=== PATIENT | male | born 1960 | race Caucasian/White ===

== ENCOUNTER 2016-08-17 09:17 | Emergency (ER) | payer BC ==
[2016-08-17 09:33] VITALS: BP 178/118
--- NOTE | 2016-08-17 09:46 | UC ---
Respiratory Complaint HPI - HPI Summary HPI Summary: coughed so hard he "popped a rib" a few days ago. Cough for over a week. Started with ST, malaise, sinus fullness, then moved into chest. Dry, wheezy cough. No hurts so much on right ribcage he is suppressing the cough. No hemoptysis. No fever. No vomiting. No bruising or chest trauma. - History of Current Complaint Chief Complaint: UCRespiratory Stated Complaint: CONGESTION PAIN IN RIB AREA Time Seen by Provider: 08/17/16 09:31 Hx Obtained From: Patient, Family/Service Or Work Dispatcher Chief - Onset/Duration: Gradual Onset, Lasting Weeks - 1 Timing: Constant Severity Initially: Mild Severity Currently: Moderate Character: Cough: Nonproductive Aggravating Factors: Exertion, Deep Breaths Alleviating Factors: Nothing Associated Signs And Symptoms: Positive: Pleuritic Chest Pain, Wheezing - with cough, URI, Nasal Congestion. Negative: Dyspnea, Fever, Chills, Hemoptysis, Edema, Hoarseness, Sinus Discomfort - Risk Factors Pulmonary Embolism Risk Factors: Negative Cardiac Risk Factors: Negative Pseudomonas Risk Factors: Negative Tuberculosis Risk Factors: Negative - Allergies/Home Medications Allergies/Adverse Reactions: Allergies Allergy/AdvReac Type Severity Reaction Status Date / Time No Known Allergies Allergy Verified 08/17/16 09:27 Home Medications: Home Medications Dextromethorphan Polistirex [Robitussin 12 Hour Cough] 08/17/16 [History Confirmed 08/17/16] Ibuprofen TAB* [Motrin TAB* 600 MG] 1 tab PO TID PRN 08/17/16 [History Confirmed 08/17/16] PMH/Surg Hx/FS Hx/Imm Hx Previously Healthy: Yes Endocrine History Of: Denies: Diabetes, Thyroid Disease Cardiovascular History Of: Denies: Cardiac Disorders, Hypertension Respiratory History Of: Denies: COPD, Asthma GI/ History Of: Denies: Ulcer - Surgical History Surgical History: None - Family History Known Family History: Negative: Respiratory Disease - no FH asthma - Social History Occupation: Employed Full-time Lives: With Family Alcohol Use: Daily Substance Use Type: None Smoking Status (MU): Never Smoked Tobacco Review of Systems Constitutional: Negative Skin: Negative Eyes: Negative ENT: Negative Respiratory: Cough Cardiovascular: Chest Pain - right lateral ribcage, small specific area of pain Gastrointestinal: Negative Genitourinary: Negative Motor: Negative Neurovascular: Negative Musculoskeletal: Negative Neurological: Negative Psychological: Negative All Other Systems Reviewed And Are Negative: Yes Physical Exam Triage Information Reviewed: Yes Appearance: Well-Appearing, No Pain Distress, Well-Nourished Vital Signs: Initial Vital Signs Temp 97.7 F 08/17/16 09:28 Pulse 82 08/17/16 09:28 Resp 16 08/17/16 09:28 BP 178/118 08/17/16 09:28 Pulse Ox 97 08/17/16 09:28 Vital Signs Reviewed: Yes Eye Exam: Normal Neck exam: Normal Neck: Positive: Supple Respiratory: Positive: Lungs clear, Normal breath sounds, No respiratory distress, No accessory muscle use. Negative: Crackles, Rhonchi, Stridor, Wheezing Cardiovascular Exam: Other - point tenderness right lateral lower ribcage Musculoskeletal Exam: Normal Neurological Exam: Normal Psychological Exam: Normal Skin Exam: Normal - no bruising UC Diagnostic Evaluation - Laboratory O2 Sat by Pulse Oximetry: 97 Diagnostic Studies Comment: xray neg Respiratory Course/Dx - Differential Dx/Diagnosis Differential Diagnosis/HQI/PQRI: Bronchitis, Lower Resp Infection, Other - rib fracture Provider Diagnoses: URI; rib fracture Discharge - Discharge Plan Condition: Stable Disposition: HOME Prescriptions: Azithromycin TAB* [Zithromax TAB (Z-IBETH)*] 0 mg PO .Z-IBETH INSTRUCTIONS #6 tab Guaifenesin-Codeine [Cheratussin AC] 1 - 2 teasp PO Q6HR PRN #120 ml MDD 30ml PRN Reason: Cough Tramadol HCl [Ultram] 1 - 2 tab PO Q6HR PRN #20 tab MDD 6 tab PRN Reason: Pain Patient Education Materials: Upper Respiratory Infection (ED), Rib Fracture (ED )
--- NOTE | 2016-08-17 09:54 | RAD ---
HISTORY: Coughing, felt pop in rib cage COMPARISONS: October 12, 2007 VIEWS: 2: Frontal dual-energy and lateral views of the chest. FINDINGS: CARDIOMEDIASTINAL SILHOUETTE: The cardiomediastinal silhouette is normal for the phase of inspiration and technique. The cardiomediastinal silhouette is stable. GALINDO: The galindo are normal. PLEURA: The costophrenic angles are sharp. No pleural abnormalities are noted. LUNG PARENCHYMA: The lung volumes are low. The lungs are clear. ABDOMEN: The upper abdomen is clear. There is no subphrenic gas. BONES AND SOFT TISSUES: No bone or soft tissue abnormalities are noted. OTHER: None. IMPRESSION: LOW LUNG VOLUMES. NO ACTIVE CARDIOPULMONARY DISEASE.
== END 2016-08-17 10:31 | disposition home or self-care (01) ==
LOC: UCEAST 09:17
DX: J06.9 Acute upper respiratory infection, unspecified (principal); R07.81 Pleurodynia
CPT/HCPCS: 71020; 99202; G0463

== ENCOUNTER 2017-04-02 10:24 | Emergency (ER) | payer BC ==
--- NOTE | 2017-04-02 12:12 | UC ---
Reagan Montero Angela, scribed for Lori Rizvi MD on 04/02/17 at 1102 . Upper Extremity HPI - HPI Summary HPI Summary: This pt is a 57 y/o right hand dominant male presenting to [facility] c/o discolored, painful, and cold right fingers (second, third, fourth and fifth fingers). Symptoms (pain) started approx one week ago. Pain started at DIP 3rd digit, where it remains worse. But has extended to 2-5 digits, and to proximal finger portion. Pt states that his third knuckle began to hurt 1 week ago and 4 days ago the third finger began to look blue. He notes that since then, he has had pain and discoloration on the fourth and fifth fingers as well. Finger discoloration since Friday, but they were "white" prior to then. Pt reports that his fingers feels numb and describes his pain as "needles poking him in fingers." His symptoms are aggravated with extension of his arm and is alleviated with elevation of his arm. No elbow or wrist pain perse. No neck sx reported. No CP /palpitations. No sob. 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 He has taken Motrin since Friday for the pain with minimal relief. Pt denies any injury to his hand, fever, chills, chest pain , SOB. Last night, pt reports his pain was very intolerable and decided to come in to [facility] today. 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 - History of Current Complaint Chief Complaint: UCGeneralIllness Stated Complaint: HAND COMPLAINT Hx Obtained From: Patient, Family/Relay Man Onset/Duration: Lasting Days, Still Present Severity Initially: Mild Severity Currently: Severe Location Of Pain: Is Diffuse - Third, fourth and fifth right fingers Aggravating Factor(s): Extension Alleviating Factor(s): Elevation Associated Signs And Symptoms: Positive: Bruising, Numbness/Tingling. Negative : Redness, Fever, Weakness - Allergies/Home Medications Allergies/Adverse Reactions: Allergies Allergy/AdvReac Type Severity Reaction Status Date / Time No Known Allergies Allergy Verified 04/02/17 10:30 PMH/Surg Hx/FS Hx/Imm Hx Other Endocrine History: DENIES: diabetes Other Cardiovascular History: DENIES: cardiac disease, [place] Other Neurological History: DENIES: CVA Other Cancer History: DENIES: Cancer - Surgical History Surgical History: None - Family History Known Family History: Positive: Other - Brain CA - mother. Blood clot fatal- father. Negative: Respiratory Disease - no FH asthma - Social History Alcohol Use: Daily Substance Use Type: None Smoking Status (MU): Never Smoked Tobacco Review of Systems Constitutional: Negative Skin: Bruising Eyes: Negative Respiratory: Negative Cardiovascular: Negative Musculoskeletal: Other: - Pain at third, fourth, and fifth right fingers. Neurological: Numbness - at the third, fourth, fifth right fingers. All Other Systems Reviewed And Are Negative: Yes Physical Exam Triage Information Reviewed: Yes Appearance: Well-Appearing - c/o pain R finger tips, Well-Nourished Vital Signs: Initial Vital Signs Temp 98 F 04/02/17 10:32 Pulse 75 04/02/17 10:32 Resp 17 04/02/17 10:32 Pulse Ox 100 04/02/17 10:32 Vital Signs Reviewed: Yes Eye Exam: Normal ENT Exam: Normal Neck exam: Normal Neck: Positive: Supple Respiratory Exam: Normal, Other - no dyspnea, no tachypnea, normal respiratory rate. Respiratory: Positive: Chest non-tender, Lungs clear, Normal breath sounds, No respiratory distress, No accessory muscle use Cardiovascular Exam: Normal Cardiovascular: Positive: RRR, No Murmur, Pulses Normal, Brisk Capillary Refill - general good cap ref. see below "extremity" for details, Other: Abdominal Exam: Normal Abdomen Description: Positive: Nontender, No Organomegaly, Soft Bowel Sounds: Positive: Present Musculoskeletal Exam: Other - EXTREMITY: Moves all 4 ext's. Palpable bilat R / L radial and ulnar pulses. Doppler not fuctioning for detailed exam. L hand / L wrist NAD R wrist NAD. R hand sign for tenderness dip 2-5 digits. Dark dusky color distal 2nd - 5th digits, pale 2-5th digits extending to MCP joints. Able to move all 5 digits. Thumb ok R. + distal sensation to LT x 5 digits R hand, although + subj mild dysesthesia. Neurological Exam: Normal - nonfocal, grossly intact (except as noted above) Psychological Exam: Normal - conversing easily and appropriately Skin Exam: Other - see above. O/w grossly normal. Nondiaphoretic. Diagnostics - EKG Cardiac Rate: NL - 79 bpm Cardiac Rhythm: Sinus: Normal - QTc 449. QRS area positive & R' V1/V2 Upper Extremity Course/Dx - Course Course Of Treatment: Dusky, painful fingers (ivan 3rd digit). Diff dx is extensive. Does not follow with a PCP; as such, PMH is uncertain. + fam hx cardiovascular but details unclear. No known hx dm. EKG (no old available) -> sinus rhythm. Call placed to Hand director of retail operations. Dr. Goode in the OR. However, Dr. Chris kindly will see Mr. Wagner this afternoon at 14:30. D/w and Mrs. Wagner, who express understanding and agreement. Will remain NPO except clear liquids. - Differential Dx/Diagnosis Provider Diagnoses: Dusky 2-5th digits RH, etiology unclear Discharge - Discharge Plan Condition: Stable Disposition: HOME Patient Education Materials: Raynaud Disease (ED) Referrals: No Primary Care Phys,NOPCP [Primary Care Provider] - Zabrina Chris MD [Medical Doctor] - Additional Instructions: Follow up Dr. Chris today at 14:30. Go to the Emergency Department if worse or new problems in the meantime. Blood sugar finger stick 103mg/dl. Possible Raynaud-type issue (see above), but NOT YET CERTAIN. FURTHER WORK UP IS INDICATED. The documentation as recorded by the Reagan pedroza Angela accurately reflects the service I personally performed and the decisions made by me, Lori Rizvi MD.
== END 2017-04-02 11:54 | disposition home or self-care (01) ==
LOC: UCEAST 10:24
DX: M25.541 Pain in joints of right hand (principal)
CPT/HCPCS: 93005; 99211; G0463

== ENCOUNTER 2018-07-28 07:06 | Inpatient (IN) | payer OTHER ==
[2018-07-28] MEDS ORDERED: Senna TAB PO PRN (15:44)
[2018-07-28] MEDS ORDERED: Magnesium Hydroxide LIQ* 30 ML UDC PO PRN (15:44)
[2018-07-28] MEDS ORDERED: oxyCODONE TAB* 5 MG TAB PO PRN (15:55)
[2018-07-28] MEDS: oxyCODONE TAB* 5 MG TAB PO PRN ×2 (16:04→21:59)
--- NOTE | 2018-07-28 19:33 | HP ---
ADMISSION HISTORY AND PHYSICAL: DATE OF ADMISSION: 07/28/18 REASON FOR ADMISSION: Critical right lower limb ischemia status post angioplasty of same. HISTORY OF PRESENT ILLNESS: Amando Wagner is a 58-year-old male. He had a history of difficulty with his right hand where he underwent a surgical procedure after he was found to have diminished circulation. He went to a new primary care doctor about 8 months ago, who sent him for vascular studies and apparently, his ankle brachial indices were pretty good. About a month ago, the patient noticed he was having significant cramping while he was walking. He showed up in our emergency room on 06/30/18. He had ankle brachial indices done again and this time it showed a decreased ankle brachial index on the right consistent with severe peripheral arterial disease. He was told to see a vascular surgeon and went back to [facility] where he saw Dr. Soto. He had an evaluation by the doctor and was admitted to [facility]. He had a CT angiogram ordered by the doctor showing occlusion of the right SFA and the right popliteal artery. He was admitted to [facility] and started on a heparin drip. On 07/17/18, he underwent a right lower extremity angiogram with AngioJet TPA thrombolysis and suction thrombectomy with balloon angioplasty of the right SFA and popliteal artery. On 07/18/18, he underwent repeat right leg angiogram and another AngioJet suction thrombectomy. On 07/19/18, he underwent a followup angiogram with removal of the thrombolysis catheter and angioplasty of the right peroneal artery and anterior tibial artery and a placement of a covered stent in the right popliteal artery, as well as a right common iliac bare-metal stent with an angioplasty of the right common iliac artery. He also had a right leg 4- compartment fasciotomy and was started on Plavix. On 07/20/18, a wound VAC was placed over the fasciotomy site. On 07/21/18, the heparin drip was held for 4 hours due to saturation of the wound VAC. On 07/22/18, the lateral fasciotomy site was changed back to a wound VAC. On 07/23/18, the heparin drip was again held for 24 hours, because of blood loss anemia from the fasciotomy sites. On 07/24/18, he was transitioned to Xarelto. The patient did have denominational of his pulses. He began to work with Physical Therapy and Occupational Therapy, who recommended acute rehab. He is now being admitted for inpatient rehab, so that he might return to independent living. PAST MEDICAL HISTORY: Significant for peripheral arterial disease. CURRENT MEDICATIONS: Includes: 1. Aspirin 81 mg daily. 2. He is on oxycodone. 3. Xarelto. 4. Lipitor. 5. Plavix. ALLERGIES: No known drug allergies. SOCIAL HISTORY: He is a nonsmoker. He lives with his girlfriend in a one- mariael[address] house. He does drink 3 to 4 beers a day. REVIEW OF SYSTEMS: The patient reports no current shortness of breath or chest pain. PHYSICAL EXAMINATION VITAL SIGNS: The patient's temperature is 97.6, blood pressure is 143/84, pulse is 84, respirations 14. HEENT: His extraocular movements are intact. Tongue is midline. NECK: Supple with no lymphadenopathy. LUNGS: Sound clear to auscultation bilaterally. HEART: Sounds are regular. S1 and S2 are audible. ABDOMEN: Soft and nontender. EXTREMITIES: His right pino has a wound VAC. There is extensive ecchymosis in the right leg. Dorsalis pedis pulses present. His upper extremities appear to be normal with peripheral pulses. NEUROLOGIC: Sensation appeared to be diminished on the sole of his foot. Muscle strength is about 4+/5 in the right lower extremity and 5/5 in the left. FUNCTIONAL EXAM: He transfers with supervision. ASSESSMENT: Critical right lower limb ischemia status post stenting of his popliteal artery and right common iliac artery with angioplasty of his right SFA and angioplasty of the right peroneal artery and anterior tibial artery. He also underwent a fasciotomy. PLAN: Our plan is to integrate him into a comprehensive and therapeutic rehab program with the following goals: 1. Physical Therapy will work with the patient. They are going to work on functional transfer training and ambulation training with a walker. 2. Occupational Therapy will see the patient and work on his activities of daily living including toileting and toilet transfers. 3. We will continue Xarelto, Plavix, and aspirin per the vascular surgeon. 4. The Xarelto will cover DVT prophylaxis. 5. Adequate analgesia. 6. His bowels will be regulated. 7. community services coordinator will be closely involved to make sure that any services and equipment that the patient requires are in place prior to discharge. 8. Continue wound VAC. 9. Family training as appropriate. 10. Home with appropriate services. ESTIMATED LENGTH OF STAY: 5 to 7 days. [id number]/CPS #: [id number] [place]
[2018-07-28] MEDS: Rivaroxaban TAB(*) 15 MG PO SCH (21:59)
[2018-07-28] MEDS: Docusate CAP* 100 MG PO SCH (21:59)
[2018-07-29 05:10] LABS: ABS Basophils 0.1 10^3/ul (0-0.2); ABS Eosinophils 0.5 10^3/ul (0-0.6); ABS Lymphocytes 1.9 10^3/ul (1.0-4.8); ABS Monocytes 0.9 10^3/ul (0-0.8); ABS Neutrophils 7.4 10^3/ul (1.5-7.7); ABS Nucleated RBC 0 10^3/ul; Eosinophil % 4.2 %; Hematocrit 28 % (42-52); Hemoglobin 9.7 g/dl (14.0-18.0); Lymphocyte % 17.9 %; Mean Corpuscular HGB Conc 34 g/dl (31-36); Mean Corpuscular Hemoglobin 34 pg (27-31); Mean Corpuscular Volume 98 fL (80-94); Nucleated Red Blood Cells % 0; Platelet Count 643 10^3/ul (150-450); Red Blood Count 2.86 10^6/ul (4.00-5.40); Red Cell Distribution Width 15 % (10.5-15); White Blood Count 10.7 10^3/ul (3.5-10.8)
[2018-07-29 05:26] LABS: Albumin 3.4 g/dL (3.2-5.2); BUN/Creatinine Ratio 12.2 (8-20); Calcium 8.8 mg/dL (8.6-10.3); EGFR Non-African American 78.3 (>60); Globulin 3.3 g/dL (2-4); Potassium 4.3 mmol/L (3.5-5.0); Total Protein 6.7 g/dL (6.4-8.9)
[2018-07-29] MEDS: Clopidogrel TAB* 75 MG PO SCH (08:37)
[2018-07-29] MEDS: Rivaroxaban TAB(*) 15 MG PO SCH ×2 (08:37→21:04)
[2018-07-29] MEDS: Aspirin EC TAB* 81 MG TAB.EC PO SCH (08:37)
[2018-07-29] MEDS: oxyCODONE TAB* 5 MG TAB PO PRN ×4 (08:37→21:04)
[2018-07-29] MEDS: Docusate CAP* 100 MG PO SCH ×2 (08:37→21:04)
[2018-07-29] MEDS: Acetaminophen TAB* 325 MG PO PRN (11:08)
--- NOTE | 2018-07-29 13:28 | PMRUTEAM ---
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 Skin Deviation Description [ wound vac in place Right Lower Leg] Physical Therapy: Current Status Bed Mobility Assistance Supervision Transfer Mobility Assistance Supervision Transfer/Bed Mobility Rolling Walker Recommended Devices Ambulation Assistance Supervision Ambulation Assistive Devices Rolling Walker Stairs Assistance Supervision Stairs Recommended Devices One Rail Number of Stairs 4 Occupational Therapy: Current Status Upper Body Dressing Supervision Lower Body Dressing Supervision Bathing Supervision Toileting Supervision Toilet Transfer Supervision Shower Transfer Supervision Eating Independent Rec Therapy: Current Status Summary of Assessment and Pt. was open to conversation - appropriate, Clinical Impression cooperative and engaged. Pt. identified with some interests and involvement in them prior to admission. Pt. was open to continued leisure visits but denied a need for any activities at this time. Treatment Goals Pt. will engage in leisure activities while on the unit. Treatment Plan Provide RT services and encourage involvement. Social Work: Current Status Discharge Plan return home with home care svs and family support Potential for Family Training pt's significant other is involved and supportive Anticipated Discharge Home Destination Discharge With home care svs and family support Goals: Physical Therapy: Updated Goals Transfer/Bed Mobility Rolling Walker Recommended Devices Occupational Therapy: Initial Goals Goals to be Completed in (Days 2-3 days ) Upper Body Bathing Routine Modified Independent with Lower Body Bathing Routine Modified Independent with Upper Body Dressing Routine Independent Lower Body Dressing Routine Independent Toilet Hygeine and Clothing Modified Independent with Management Routine Toilet Transfer Routine Modified Independent with Tub Transfer Routine Modified Independent with Functional Transfers for ADL Modified Independent with Grooming Routine Independent Feeding Routine Independent Social Work: Goals Discharge Plan return home with home care svs and family support Potential for Family Training pt's significant other is involved and supportive Anticipated Discharge Home Destination Discharge With home care svs and family support Care Plan: Care Plan Discharge Planning - Improve/Maintain Start: 07/28/18 15:32 Freq: DAILY Status: Active Target: Protocol: Activity Type Activity Date Activity User E-Sign Co-Sign Detail Recorded Client Recorded Date Recorded By Document 07/29/18 01:40 [id number] 07/29/18 01:40 [id number] 07/29/18 01:40 PMRU Outcome: Discharge Planning Update Patient Family No Outcome/Goals Demonstrates Understanding of Discharge Plan Education-Improve/Maintain Start: 07/28/18 15:32 Freq: QSHIFT Status: Active Target: Protocol: Activity Type Activity Date Activity User E-Sign Co-Sign Detail Recorded Client Recorded Date Recorded By Document 07/29/18 01:40 [id number] [id number] 07/29/18 01:40 [id number] 07/29/18 01:40 PMRU Outcome: Education Outcome/Goals Demonstrates Skills Progression Toward Outcome/Goals Progressing Medication Administration Start: 07/28/18 15:32 Freq: QSHIFT Status: Active Target: Protocol: Activity Type Activity Date Activity User E-Sign Co-Sign Detail Recorded Client Recorded Date Recorded By Document 07/29/18 01:40 [id number] 07/29/18 01:40 [id number] 07/29/18 01:40 PMRU Outcome: Medication Administration Assess Patient Knowledge/Teach Med Yes Education for all Meds Outcome/Goals Patient Independent with Medication Administration at Home Progression Towards Outcome/Goals Progressing Is Patient Going Home on Lovenox? No Pain/Comfort- Improve/Maintain Start: 07/28/18 15:32 Freq: QSHIFT Status: Active Target: Protocol: Activity Type Activity Date Activity User E-Sign Co-Sign Detail Recorded Client Recorded Date Recorded By Document 07/29/18 01:40 [id number] 07/29/18 01:40 [id number] 07/29/18 01:40 PMRU Outcome: Pain/Comfort Outcome/Goals Demonstrates Knowledge and Use of Available Comfort Measures Achieves Acceptable Comfort/Pain Level as Determined by Patient/Condit Maintain Comfort Level Allowing Patient to Fully Participate in Rehab Progression Toward Outcome/Goals Progressing Outcome/Goals Met Comment pt denied pain at this time Skin- Improve/Maintain Start: 07/28/18 15:32 Freq: QSHIFT Status: Active Target: Protocol: Activity Type Activity Date Activity User E-Sign Co-Sign Detail Recorded Client Recorded Date Recorded By Document 07/29/18 01:40 [id number] 07/29/18 01:40 [id number] 07/29/18 01:40 PMRU Outcome: Skin Skin Risk Level Medium Skin Orders Dressing Change Outcome/Goals Maintain/ Improve Wound Status Progression Toward Outcome/Goals Progressing Medicine Note: Length of Stay: 3 days Anticipated Discharge Destination: Home Tentative Discharge Date: 08/01/18 Discharged to: Home
[2018-07-29] MEDS: Atorvastatin* 40 MG TAB PO SCH (17:02)
--- NOTE | 2018-07-29 22:12 | PN ---
Progress Note Date of Service: 07/29/18 Note: JESSE STEWARD was visited. Therapy notes read and reviewed. Patient was discussed in interdisciplinary plan of care team rounds. He is moving fairly well and will likely go home at end of week. Current Medications: Active Medications Generic Name Dose Route Start Last Admin Trade Name Freq PRN Reason Stop Dose Admin Acetaminophen 650 mg 07/28/18 15:44 07/29/18 11:08 Tylenol Tab* PO 650 mg Q6H PRN Administration FEVER > 101 Aspirin 81 mg 07/29/18 09:00 07/29/18 08:37 Aspirin Ec Tab* PO 81 mg DAILY ROBER Administration Atorvastatin Calcium 40 mg 07/29/18 17:00 07/29/18 17:02 Lipitor* PO 40 mg 1700 ROBER Administration Clopidogrel Bisulfate 75 mg 07/29/18 09:00 07/29/18 08:37 Plavix Tab* PO 75 mg DAILY ROBER Administration Docusate Sodium 100 mg 07/28/18 21:00 07/29/18 21:04 Colace Cap* PO 100 mg BID ROBER Administration Magnesium Hydroxide 30 ml 07/28/18 15:44 Milk Of Magnesia Liq* PO Q6H PRN CONSTIPATION Oxycodone HCl 5 mg 07/28/18 15:55 Roxycodone Tab* PO Q4H PRN PAIN - MODERATE TO SEVERE Oxycodone HCl 10 mg 07/28/18 15:56 07/29/18 21:04 Roxycodone Tab* PO 10 mg Q4H PRN Administration PAIN - SEVERE Rivaroxaban 15 mg 07/28/18 21:00 07/29/18 21:04 Xarelto(*) PO 08/13/18 23:55 15 mg BID ROBER Administration Rivaroxaban 20 mg 08/14/18 09:00 Xarelto(*) PO DAILY ORBER Senna 2 tab 07/28/18 15:44 Senokot Tab* PO BEDTIME PRN CONSTIPATION Vital Signs: Vital Signs Temp Pulse Resp BP Pulse Ox 98.4 F 79 16 109/77 98 07/29/18 15:08 07/29/18 15:08 07/29/18 21:04 07/29/18 15:08 07/29/18 15:08 Lab Results: Laboratory Results - last 24 hr 07/29/18 07/29/18 04:56 04:56 WBC 10.7 RBC 2.86 L Hgb 9.7 L Hct 28 L MCV 98 H MCH 34 H MCHC 34 RDW 15 Plt Count 643 H MPV 8.0 Neut % (Auto) 68.9 Lymph % (Auto) 17.9 [place] % (Auto) 8.2 Eos % (Auto) 4.2 Baso % (Auto) 0.8 Absolute Neuts (auto) 7.4 Absolute Lymphs (auto) 1.9 Absolute Monos (auto) 0.9 H Absolute Eos (auto) 0.5 Absolute Basos (auto) 0.1 Absolute Nucleated RBC 0 Nucleated RBC % 0 Sodium 135 Potassium 4.3 Chloride 101 Carbon Dioxide 29 Anion Gap 5 BUN 12 Creatinine 0.98 Est GFR ( Amer) 94.7 Est GFR (Non-Af Amer) 78.3 BUN/Creatinine Ratio 12.2 Glucose 119 H Calcium 8.8 Total Bilirubin 1.00 AST 29 ALT 20 Alkaline Phosphatase 63 Total Protein 6.7 Albumin 3.4 Globulin 3.3 Albumin/Globulin Ratio 1.0 Exam: GENERAL: No apparent distress LUNGS: Clear bilaterally HEART: regular rhythm ABDOMEN: Soft EXTREMITIES: Right VAC site looks clean. Multiple ecchymoses on right leg. NEUROLOGIC: sensation decreased on sole of right foot. Muscle strength 4/5 distally RLE Assessment/Plan: 1. Critical Limb Iscemia, RLE, S/P Stenting R Popliteal and R Common Iliac Aa: WBAT. PT/OT. ASA/Plavix/Xarelto 2. Peripheral Arterial Disease: Lipitor/ASA/Plavix 3. Analgesia: Oxycodone 4. DVT Prophylaxis: Xarelto 5. Advanced Directives: Full Code 07/29/18 22:13 07/29/18 22:15
[2018-07-30] MEDS: Docusate CAP* 100 MG PO SCH ×2 (08:42→21:51)
[2018-07-30] MEDS: Rivaroxaban TAB(*) 15 MG PO SCH ×2 (08:42→21:52)
[2018-07-30] MEDS: Clopidogrel TAB* 75 MG PO SCH (08:42)
[2018-07-30] MEDS: Aspirin EC TAB* 81 MG TAB.EC PO SCH (08:42)
[2018-07-30] MEDS: oxyCODONE TAB* 5 MG TAB PO PRN ×4 (08:43→23:54)
[2018-07-30] MEDS: Acetaminophen TAB* 325 MG PO PRN ×2 (12:50→23:54)
[2018-07-30] MEDS: Atorvastatin* 40 MG TAB PO SCH (16:56)
--- NOTE | 2018-07-30 23:40 | PN ---
Progress Note Date of Service: 07/30/18 Note: JESSE STEWARD was visited. Therapy notes read and reviewed. Moving very well. The VAC dressing site appears clean. He seems ready for discharge Friday morning Current Medications: Active Medications Generic Name Dose Route Start Last Admin Trade Name Freq PRN Reason Stop Dose Admin Acetaminophen 650 mg 07/28/18 15:44 07/30/18 12:50 Tylenol Tab* PO 650 mg Q6H PRN Administration FEVER > 101 Aspirin 81 mg 07/29/18 09:00 07/30/18 08:42 Aspirin Ec Tab* PO 81 mg DAILY ROBER Administration Atorvastatin Calcium 40 mg 07/29/18 17:00 07/30/18 16:56 Lipitor* PO 40 mg 1700 ROBER Administration Clopidogrel Bisulfate 75 mg 07/29/18 09:00 07/30/18 08:42 Plavix Tab* PO 75 mg DAILY ORBER Administration Docusate Sodium 100 mg 07/28/18 21:00 07/30/18 21:51 Colace Cap* PO 100 mg BID ROBER Administration Magnesium Hydroxide 30 ml 07/28/18 15:44 Milk Of Magnesia Liq* PO Q6H PRN CONSTIPATION Oxycodone HCl 5 mg 07/28/18 15:55 Roxycodone Tab* PO Q4H PRN PAIN - MODERATE TO SEVERE Oxycodone HCl 10 mg 07/28/18 15:56 07/30/18 19:24 Roxycodone Tab* PO 10 mg Q4H PRN Administration PAIN - SEVERE Rivaroxaban 15 mg 07/28/18 21:00 07/30/18 21:52 Xarelto(*) PO 08/13/18 23:55 15 mg BID ROBER Administration Rivaroxaban 20 mg 08/14/18 09:00 Xarelto(*) PO DAILY ROBER Senna 2 tab 07/28/18 15:44 Senokot Tab* PO BEDTIME PRN CONSTIPATION Vital Signs: Vital Signs Temp Pulse Resp BP Pulse Ox 98.1 F 71 19 127/86 97 07/30/18 16:13 07/30/18 16:13 07/30/18 21:52 07/30/18 16:13 07/30/18 16:27 Exam: GENERAL: No apparent distress LUNGS: Clear bilaterally HEART: regular rhythm ABDOMEN: Soft EXTREMITIES: Right VAC site looks clean. Multiple ecchymoses on right leg. NEUROLOGIC: sensation decreased on sole of right foot. Muscle strength 4/5 distally RLE Assessment/Plan: 1. Critical Limb Iscemia, RLE, S/P Stenting R Popliteal and R Common Iliac Aa: WBAT. PT/OT. ASA/Plavix/Xarelto 2. Peripheral Arterial Disease: Lipitor/ASA/Plavix 3. Analgesia: Oxycodone 4. DVT Prophylaxis: Xarelto 5. Advanced Directives: Full Code 07/30/18 23:41
[2018-07-31] MEDS: Rivaroxaban TAB(*) 15 MG PO SCH ×2 (08:53→22:07)
[2018-07-31] MEDS: Docusate CAP* 100 MG PO SCH ×2 (08:53→22:07)
[2018-07-31] MEDS: oxyCODONE TAB* 5 MG TAB PO PRN ×3 (08:53→19:28)
[2018-07-31] MEDS: Aspirin EC TAB* 81 MG TAB.EC PO SCH (08:53)
[2018-07-31] MEDS: Clopidogrel TAB* 75 MG PO SCH (08:53)
[2018-07-31] MEDS: Atorvastatin* 40 MG TAB PO SCH (16:52)
--- NOTE | 2018-07-31 17:40 | PN ---
Progress Note Date of Service: 07/31/18 Note: JESSE STEWARD was visited. Therapy notes read and reviewed. His VAC got approved and he is ready for discharge in the morning. He feels good and pain is controlled. Current Medications: Active Medications Generic Name Dose Route Start Last Admin Trade Name Freq PRN Reason Stop Dose Admin Acetaminophen 650 mg 07/28/18 15:44 07/30/18 23:54 Tylenol Tab* PO 650 mg Q6H PRN Administration FEVER > 101 Aspirin 81 mg 07/29/18 09:00 07/31/18 08:53 Aspirin Ec Tab* PO 81 mg DAILY ROBER Administration Atorvastatin Calcium 40 mg 07/29/18 17:00 07/31/18 16:52 Lipitor* PO 40 mg 1700 ROBER Administration Clopidogrel Bisulfate 75 mg 07/29/18 09:00 07/31/18 08:53 Plavix Tab* PO 75 mg DAILY ROBER Administration Docusate Sodium 100 mg 07/28/18 21:00 07/31/18 08:53 Colace Cap* PO 100 mg BID ROBER Administration Magnesium Hydroxide 30 ml 07/28/18 15:44 Milk Of Magnesia Liq* PO Q6H PRN CONSTIPATION Oxycodone HCl 5 mg 07/28/18 15:55 Roxycodone Tab* PO Q4H PRN PAIN - MODERATE TO SEVERE Oxycodone HCl 10 mg 07/28/18 15:56 07/31/18 13:59 Roxycodone Tab* PO 10 mg Q4H PRN Administration PAIN - SEVERE Rivaroxaban 15 mg 07/28/18 21:00 07/31/18 08:53 Xarelto(*) PO 08/13/18 23:55 15 mg BID ROBER Administration Rivaroxaban 20 mg 08/14/18 09:00 Xarelto(*) PO DAILY ROBER Senna 2 tab 07/28/18 15:44 Senokot Tab* PO BEDTIME PRN CONSTIPATION Vital Signs: Vital Signs Temp Pulse Resp BP Pulse Ox 98.1 F 59 18 105/60 92 07/31/18 05:30 07/31/18 05:30 07/31/18 16:55 07/31/18 05:30 07/31/18 05:30 Exam: GENERAL: No apparent distress LUNGS: Clear bilaterally HEART: regular rhythm ABDOMEN: Soft EXTREMITIES: Right VAC site looks clean. Multiple ecchymoses on right leg. NEUROLOGIC: sensation decreased on sole of right foot. Muscle strength 4/5 distally RLE Assessment/Plan: 1. Critical Limb Iscemia, RLE, S/P Stenting R Popliteal and R Common Iliac Aa: WBAT. PT/OT. ASA/Plavix/Xarelto 2. Peripheral Arterial Disease: Lipitor/ASA/Plavix 3. Analgesia: Oxycodone 4. DVT Prophylaxis: Xarelto 5. Advanced Directives: Full Code 07/31/18 17:40
[2018-08-01] MEDS: oxyCODONE TAB* 5 MG TAB PO PRN ×2 (05:10→09:08)
[2018-08-01 07:18] VITALS: BP 115/69
[2018-08-01] MEDS: Aspirin EC TAB* 81 MG TAB.EC PO SCH (09:06)
[2018-08-01] MEDS: Clopidogrel TAB* 75 MG PO SCH (09:06)
[2018-08-01] MEDS: Docusate CAP* 100 MG PO SCH (09:06)
[2018-08-01] MEDS: Rivaroxaban TAB(*) 15 MG PO SCH (09:07)
--- NOTE | 2018-08-01 14:41 | DS ---
CC: Dr. Soto* DISCHARGE SUMMARY: DATE OF ADMISSION: 07/28/18. DATE OF DISCHARGE: 08/01/18. DISCHARGE DIAGNOSES: 1. Critical limb ischemia, right leg. 2. Status post angioplasty of multiple arteries of the right leg including the right peroneal, anterior tibial. 3. Status post stenting of right popliteal artery and right common iliac artery. 4. Peripheral arterial disease. 5. Fasciotomy, right leg. HISTORY OF PRESENT ILLNESS AND HOSPITAL COURSE: For complete history of the events leading up to his rehab stay, please see the history and physical dictated by me on 07/28/18. While on the rehab unit, the patient continued to use a wound VAC for his fasciotomy site. He was maintained on aspirin, Plavix, and Xarelto as well as Lipitor. He received adequate analgesia with oral analgesics. The patient was seen by physical and occupational therapy and made good gains with both disciplines. With physical therapy at the time of admission, the patient required supervision for transfers, supervision for ambulation with occupational therapy with supervision for toileting and toilet transfers. The patient was discharged home on 08/01/18 after achieving independence in all activities. DISCHARGE DIET: Regular. DISCHARGE MEDICATIONS: Included: 1. Aspirin 81 mg daily. 2. Lipitor 40 mg daily. 3. Plavix 75 mg daily. 4. Xarelto 15 mg twice daily until 08/13/18 at midnight, then transitioning to Xarelto 20 mg once a day starting 08/14/18. 5. Oxycodone 5-10 mg every 4 hours as needed for pain. SERVICES AFTER DISCHARGE: The patient was discharged home with a wound VAC that needs to be changed every 2 days. He will also get services through the visiting nurse service including home nursing and home physical therapy. FOLLOWUP: He will follow up with his vascular surgeon at [facility], Dr. Soto, and he will follow up on 08/13/18. He will also follow up with his primary care provider. TIME SPENT: Time spent on this discharge was approximately 55 minutes, greater than half of which was spent [id number] with the patient, discussing post rehabilitation medications including pain medications and antiplatelet agents, therapies and followup appointments. [id number]/[facility] #: [id number] [facility] HOSPITALEmily
[2018-08-14] MEDS ORDERED: Rivaroxaban TAB(*) 10 MG PO SCH (09:00)
== END 2018-08-01 12:50 | disposition home health service (06) | DRG 862 ==
LOC: PMRU 12:51 → UNDOADMIN 12:51 → UNDODISIN 08-01 12:50
PROVIDERS: ADMIT Physical Medicine & Rehabilitation; ATTEND Physical Medicine & Rehabilitation
PROC: F07Z5ZZ Bed Mobility Treatment (ICD-10-PCS; principal; 2018-07-28)
PROC: F07Z9ZZ Gait Training/Functional Ambulation Treatment (ICD-10-PCS; 2018-07-28)
PROC: F07Z8ZZ Transfer Training Treatment (ICD-10-PCS; 2018-07-28)
PROC: F08Z0ZZ Bathing/Showering Techniques Treatment (ICD-10-PCS; 2018-07-28)
PROC: F08Z1ZZ Dressing Techniques Treatment (ICD-10-PCS; 2018-07-28)
PROC: F08Z3ZZ Feeding/Eating Treatment (ICD-10-PCS; 2018-07-28)
DX: Z48.89 Encounter for other specified surgical aftercare (principal); I99.8 Other disorder of circulatory system; I70.201 Unspecified atherosclerosis of native arteries of extremities, right leg; Z79.82 Long term (current) use of aspirin; Z79.899 Other long term (current) drug therapy
CPT/HCPCS: 36415; 80053; 85025; A9270-GY